=== PATIENT | male | born 1995 | race Hispanic/Latino ===

== ENCOUNTER 2023-12-18 22:42 | Emergency (ER) | payer SELFPAY ==
[~2023-12-18] VITALS: Ht 172.7 cm; Wt 65.8 kg
[2023-12-18 22:55] VITALS: PULSE 57; RESP 16; TEMP 97.6; O2SAT 100
[2023-12-18] MEDS: KETOROLAC TROMETHAMINE 30 MG/ML VIAL IM STA (23:17)
== END 2023-12-18 23:15 | disposition home or self-care (01) ==
LOC: FSED 22:59
DX: K08.89 Other specified disorders of teeth and supporting structures (principal)
CPT/HCPCS: 99282; J1885